=== PATIENT | male | born 1980 | race Two or more races ===

== ENCOUNTER 2024-07-04 09:20 | Day surgery (SDC) | payer MEDICAID ==
[2024-07-03 14:58] LABS: Urine Bacteria None Seen /hpf (None Seen)
[2024-07-03 15:40] LABS: Basophils # (auto) 0 10 ^3/uL (0-0.2); Basophils % (auto) 0.6 % (0.0-2.0); Eosinophils # (auto) 0.2 10 ^3/uL (0-0.8); Eosinophils % (auto) 2.6 % (0.0-7.0); Hematocrit 46.2 % (41.0-53.0); Hemoglobin 15.8 g/dL (13.5-17.5); Lymphocytes # (auto) 2.2 10 ^3/uL (0.4-5.4); Lymphocytes % (auto) 34.1 % (10.0-50.0); Mean Corpuscular Hemoglobin 33.4 pg (28.0-32.0); Mean Corpuscular Hgb Conc. 34.2 g/dL (32.0-36.0); Mean Corpuscular Volume 97.8 fL (80.0-100.0); Monocytes # (auto) 0.7 10 ^3/uL (0-1.3); Monocytes % (auto) 10.7 % (0.0-12.0); Neutrophils # (auto) 3.3 10 ^3/uL (1.6-8.6); Nucleated Red Blood Cells % 0.2 %; Platelet Count (auto) 235 10^3/uL (140-450); Red Blood Cells 4.73 10^6/uL (4.5-5.90); Red Cell Distribution Width 14.5 % (11.8-14.3); White Blood Cell 6.4 10^3/uL (4.4-10.8)
[2024-07-03 15:58] LABS: Alanine Aminotransferase 17 U/L (7-40); Albumin 4.5 g/dL (3.2-4.8); Alkaline Phosphatase 89 U/L (46-116); Anion Gap 3 (5-15); Aspartate Aminotransferase 15 U/L (13-40); BUN/Creatinine Ratio 14.9 (10.0-20.0); Bilirubin, Total 0.7 mg/dL (0.2-1.0); Blood Urea Nitrogen 21 mg/dL (9-23); Calcium 10.1 mg/dL (8.7-10.4); Carbon Dioxide 27 mmol/L (20-30); Chloride 109 mmol/L (98-107); Glucose 90 mg/dL (74-106); Potassium 4.2 mmol/L (3.5-5.1); Sodium 139 mmol/L (136-145); Urine Blood 1+ /uL (Negative); Urine Clarity Clear (Clear); Urine Color Yellow (Yellow); Urine Protein, UAD 1+ (Negative); Urine Specific Gravity 1.035 (1.001-1.035); Urine Urobilinogen 2 mg/dL (Negative); Urine WBC 3 /hpf (0 - 3); Urine pH 5.5 (5.0-9.0)
[2024-07-03 16:00] LABS: INR 0.98 (0.9-1.15); Prothrombin Time 10.4 sec (9.3-11.8)
[~2024-07-04] VITALS: Ht 177.8 cm; Wt 63.5 kg
[2024-07-04] MEDS ORDERED: MIDAZOLAM HCL 2MG/2ML 2ml VIAL (1mg/ml) ONE (11:20)
[2024-07-04] MEDS ORDERED: PROPOFOL 10 MG/ML 20 ML IV ONE (11:20)
[2024-07-04] MEDS ORDERED: ONDANSETRON HCL 4 MG/2 ML VIAL ONE (11:20)
[2024-07-04] MEDS ORDERED: MEPERIDINE HCL (50 MG/ML) 1 ML VIAL ONE (11:20)
[2024-07-04] MEDS ORDERED: SODIUM CHLORIDE LOCK 10 ML ONE (11:20)
[2024-07-04] MEDS ORDERED: fentaNYL CITRATE 100 MCG/2 ML VL ONE (11:20)
[2024-07-04] MEDS: LIDOCAINE VISCOUS 2% 15ML UD ONE (11:37)
[2024-07-04 12:03] VITALS: PULSE 94; RESP 20; TEMP 98; O2SAT 100
[2024-07-04 12:33] VITALS: BP 144/81; PULSE 89; RESP 20; O2SAT 98
== END 2024-07-04 12:50 | disposition home or self-care (01) ==
LOC: GI 09:20
PROVIDERS: ATTEND Internal Medicine Gastroenterology
DX: R63.4 Abnormal weight loss (principal); K29.50 Unspecified chronic gastritis without bleeding; K31.A11 Gastric intestinal metaplasia without dysplasia, involving the antrum; I12.9 Hypertensive chronic kidney disease with stage 1 through stage 4 chronic kidney disease, or unspecified chronic kidney disease; N18.30 Chronic kidney disease, stage 3 unspecified; Z21 Asymptomatic human immunodeficiency virus [HIV] infection status; Z80.8 Family history of malignant neoplasm of other organs or systems; Z68.20 Body mass index [BMI] 20.0-20.9, adult
CPT/HCPCS: 36415; 43239; 45378; 80053; 81001; 85025; 85610; 85730; 88305; 88312; 88342; J2175; J2250; J2405; J2704; J3010; J7030

== ENCOUNTER 2025-10-17 16:53 | Inpatient (IN) | payer MEDICAID ==
[~2025-10-17] VITALS: Ht 180.3 cm; Wt 67.2 kg
--- NOTE | 2025-10-17 17:10 | ED.PDOC ---
General HPI Comments 45 y/o M is BIBA from private residence for c/c of right sided flank pain. Patient was, recently, seen and diagnosed with a 8mm kidney stone at [facility] 2 weeks ago. He reports pain worsening, with no relief with prescribed [place] medication use, after being discharged from facility. Pain radiates to his back and is described as tight and pressure-like in quality and rated at a 10/10 in severity. Associated burning with urination with dark discoloration. No reported history of pertinent abdominal surgeries. Denial of any nausea, vomiting, diarrhea, bleeding with urination, or further acute symptoms. Vitals stable and within normal limits, with exception of a systolic pressure in the 160's range. On scene blood glucose of 112. Patient received 100ug Fentanyl prior to ED arrival, with pain improving to a 8/10 in severity. Vitals on scene: Blood pressure: 166/102 Heart rate: 80 Respiratory rate: 20 SpO2: 98%RA Past medical history: denies Past surgical history: denies Social history: denies santiago: r flank pain r abd , kid stone 2 wks ago HPI: Poor Historian. REVIEW OF SYSTEMS: CONSTITUTIONAL: Denies acute: fever, diaphoresis, chills, generalized weakness. HEAD: Denies acute: headache, photophobia Eyes: Denies acute: Double vision, vision loss, eye pain, eye discharge. EARS: Denies acute: tinnitus, hearing loss, ear discharge, ear pain, THROAT: Denies acute: sore throat, swelling, difficulty swallowing , pain with swallowing, change in voice. NECK: Denies acute: neck pain, neck swelling, stiff neck. HEART: Denies acute : chest pain, palpitations, LUNGS: Denies acute: SOB, wheezing, cough, hemoptysis ABDOMEN: Denies acute: Nausea, Vomiting, diarrhea, melena , hematemesis, hematochezia SKIN: Denies acute: rash, redness, lesions, itchiness. EXTREMITIES: Denies acute: calf pain, numbness, tingling, weakness, denies pain in extremity. Denies acute: Low back pain. Neuro: Denies acute: focal neurological deficit, motor or sensory focal neurological deficit, tremors, seizure like activity, confusion, dizziness, change in mental status, loss of bowel or bladder function, cauda equina like symptoms. : Denies acute: dysuria, hematuria, increase in urinary frequency. PSYCH: Denies acute: hallucination, suicidal ideation, homicidal ideation. PHYSICAL EXAM: General: -----mild---acute distress, awake and alert. Head: normocephalic, atraumatic. No raccoon's eyes, no urbina sign. Neck: supple, trachea is midline, no swelling. Throat: Normal phonation. Eyes:, no erythema, no purulent discharge, no proptosis, no icterus. Heart: regular rate, regular rhythm, no significant murmur appreciated. Lungs: no apparent respiratory distress, Able to speak in full sentences. No wheezing, no rhonchi, no crackles. No stridors Clear to auscultation bilaterally. Abdomen: Right-sided abdominal tender to palpation, non distended, soft, no guarding, no rebound, + bowel sounds. Neuro: Awake, Alert, oriented to name, self, situation, follows commands GCS=15. Speech is normal. Skin: no petechia, no purpura, no cyanosis, non-pale, not jaundice. Lower extremities: --no - Pitting edema no deformity, no focal swelling, no calf TTP. Makes eye contact. moves all four extremities. Face: no apparent facial droop. right CVA tenderness to percussion . ED COURSE: DISCLAIMER: This medical document was created using an electronic medical record system with voice recognition software and computerized dictation system. Although this document has been carefully reviewed, there might still be some phonetic and typographical errors. Occasional wrong-word or "sound-alike" substitutions may have occurred due to the inherent limitations of voice recognition software. These areas are purely typographical due to imperfections of the software programs and do not reflect any compromise in the patient's medical care. Please read the chart carefully and recognize, using context, where these substitutions have occurred. 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 Was a procedure done?: No Differential Diagnosis Kidney stone (Female): N/A Kidney stone (Male): Other (Flank Pain;DDX include Nephrolethiasis, obstructive uropathy, kidney cancer, renal infarct, intraabdominal neoplasm, lower lobe pneumonia, retroperitoneal hemorrhage, pancreatitis, aneurysm, dissection, musculoskeletal, rib contusion/trauma, hematoma, PYLONEPHRITIS, muscle strain, spinal disease. ) X-Ray, Labs, Meds, VS Vital Signs Date Time Temp Pulse Resp B/P (MAP) Pulse Ox O2 Delivery O2 Flow Rate FiO2 10/17/25 16:55 98.1 80 20 166/102 98 98.1 Lab Test 10/17/25 17:49 10/17/25 13:47 Range/Units White Blood Count 10.0 4.4-10.8 10^3/uL Red Blood Count 4.46 L 4.5-5.90 10^6/uL Hemoglobin 14.5 13.5-17.5 g/dL Hematocrit 42.7 41.0-53.0 % Mean Corpuscular Volume 95.8 80.0-100.0 fL Mean Corpuscular Hemoglobin 32.6 H 28.0-32.0 pg Mean Corpuscular Hemoglobin Concent 34.0 32.0-36.0 g/dL Red Cell Distribution Width 15.0 H 11.8-14.3 % Platelet Count 383 140-450 10^3/uL Mean Platelet Volume 6.3 L 6.9-10.8 fL Neutrophils (%) (Auto) 61.8 37.0-80.0 % Lymphocytes (%) (Auto) 23.1 10.0-50.0 % Monocytes (%) (Auto) 12.8 H 0.0-12.0 % Eosinophils (%) (Auto) 1.8 0.0-7.0 % Basophils (%) (Auto) 0.5 0.0-2.0 % Neutrophils # (Auto) 6.2 1.6-8.6 10 ^3/uL Lymphocytes # (Auto) 2.3 0.4-5.4 10 ^3/uL Monocytes # (Auto) 1.3 0-1.3 10 ^3/uL Eosinophils # (Auto) 0.2 0-0.8 10 ^3/uL Basophils # (Auto) 0.1 0-0.2 10 ^3/uL Nucleated Red Blood Cells 0.0 % Sodium Level 137 136-145 mmol/L Potassium Level 4.2 3.5-5.1 mmol/L Chloride Level 104 98-107 mmol/L Carbon Dioxide Level 26 20-31 mmol/L Anion Gap 7 5-15 Blood Urea Nitrogen 12 9-23 mg/dL Creatinine 2.44 H 0.700-1.30 mg/dL Glomerular Filtration Rate Calc 33 >90 mL/min BUN/Creatinine Ratio 4.9 L 10.0-20.0 Serum Glucose 93 74-106 mg/dL Lactic Acid Level 1.0 0.4-2.0 mmol/L Calcium Level 9.8 8.7-10.4 mg/dL Total Bilirubin 0.2 0.2-1.0 mg/dL Aspartate Amino Transferase (AST) 14 13-40 U/L Alanine Aminotransferase (ALT) 11 7-40 U/L Alkaline Phosphatase 92 46-116 U/L Total Protein 8.6 H 5.7-8.2 g/dL Albumin 4.5 3.2-4.8 g/dL Urine Creatinine 351.42 H 30.0-125.0 mg/dL Urine Protein/Creatinine Ratio 0.26 Urine Sodium 51 40-220 mmol/L Urine Total Protein 91.6 H 1-14 mg/dL [place] [id number] Ph: [phone] DIAGNOSTIC IMAGING Diagnostic Imaging Report : [id number] Signed PATIENT: ARIADNA SANTIAGO JR ACCT: [id number] UNIT: [id number] : 1980 LOC: ER ROOM / BED: / AGE / SEX: 45 / M ADM STATUS: REG ER SERVICE [id number] ORDERING PHYSICIAN: SUSANNE FIELDS DO PROCEDURE(s): ABPL - CT AB PEL WO CON-NO ORAL OR IV REASON: r flank pain, kid stone ORDER NUMBER(s): [id number], ACCESSION NUMBER(s): [id number] INDICATION: r flank pain, kid stone TECHNIQUE: CT axial images of the abdomen and pelvis are obtained without con trast. Coronal and sagittal reformats were obtained. Radiation Dose Information: CTDI volume is 5.42 mGy. Dose-length product is 295.68 mGy*cm COMPARISON: CT ABD/PEL on DOS: 10/03/25 FINDINGS: There is limited interpretation of the abdomen and pelvis without administration of intravenous contrast. Lung bases demonstrate no pleural effusion. Adrenal glands, spleen, pancreas, liver unremarkable in shape. No CT evidence for cholelithiasis. The Right kidney demonstrates moderate to severe right hydroureteronephrosis secondary to a mid right ureteral calculus measuring 10 mm. Right perinephric edema / stranding. 3 mm nonobstructing right renal calculus. Nonobstructing left renal calculi measuring up to 5 mm. Stomach partially distended. Small bowel loops moderately distended. Moderate to large volume stool throughout the colon. Normal appendix. Abdominal aortic atherosclerotic disease. Bladder partially distended. Prostate measures 4.7 cm transversely. No free pelvic fluid. No inguinal lymphadenopath y. [id number] bilateral sacroiliac degenerative joint disease. Mild thoracolumbar degenerative disc disease. IMPRESSION: Limited evaluation without contrast. Moderate to severe right hydroureteronephrosis secondary to a 10 mm right mid ureteral calculus. Moderate to large volume stool within the colon. Nonobstructing left renal calculus measuring 5 mm. Nonobstructing right renal calculus measuring 3 mm. Atherosclerotic disease. Other findings as described. ATED BY: ABDULAZIZ BIANCHI MD DICTATED DATE/TIME: 10/17/251848 SIGNED BY: ABDULAZIZ BAINCHI MD SIGNED DATE/TIME: 10/17/251848 CC: Time of 1ST Reevaluation: 16:50 Reevaluation 1ST: Unchanged Patient Education/Counseling: Diagnosis, Treatment Family Education/Counseling: No Family Present Comments MDM: patient presented with the above HPI.----flank pain--workup was initiated. patient was found with the above mentioned diagnosis. the following medications were ordered: please refer to order lists of meds and tests obtained by myself Dr. Fields. Patient ED course and VS have been stabilized. Patient has been reassessed in the ED and remained in a stable condition. Pertinent incidental findings were discussed with the patient and/or family. Patient/family voices understanding and is agreeable with plan. Patient has been observed in the ED adequate length of time to insure improvement/stability. Escalation of care considered: Consideration of escalation to observation or admission Patient was ADMITTED to the medicine team for further evaluation and treatment of their presentation. All the reports of any imaging studies that were ordered by myself were reviewed by myself. SEPSIS Sepsis Screen Physician Orders Artificial Breeding Technician (10/17/25 ) Ct Ab Pel Wo Con-No Oral Or Iv (10/17/25 17:16) Vital Signs Date Time Temp Pulse Resp B/P (MAP) Pulse Ox O2 Delivery O2 Flow Rate FiO2 10/17/25 16:55 98.1 80 20 166/102 98 98.1 Laboratory Tests Test 10/17/25 17:49 Lactic Acid Level 1.0 mmol/L (0.4-2.0) White Blood Count 10.0 10^3/uL (4.4-10.8) Departure 1 Departure Time of Disposition: 19:56 Impression: Primary Impression: Urinary tract obstruction by kidney stone Additional Impressions: Hydronephrosis Acute renal insufficiency Disposition: ADMITTED INPATIENT Admit to: Tele Condition: Guarded e-Prescriptions Tramadol HCl (Tramadol HCl) 50 Mg Tab 50 MG PO QID PRN, #30 TAB Prov: FAUSTINO BENAVIDEZ MD 10/22/25 Ciprofloxacin Hcl (Cipro) 500 Mg Tab 1 TAB PO BID, #14 TAB Prov: FAUSTINO BENAVIDEZ MD 10/22/25 Discharged With: Self Critical Care Note Critical Care Time?: No I personally scribed for SUSANNE FIELDS DO ([email or web address]) on 10/17/25 at 17:10. Electronically submitted by Vikas Hooper ([email or web address]). I personally scribed for SUSANNE FIELDS DO ([email or web address]) on 10/17/25 at 19:58. Electronically submitted by Radha Jiang ([facility]). I personally scribed for SUSANNE FIELDS DO ([email or web address]) on 10/17/25 at 21:37. Electronically submitted by Radha Jiang ([facility]). SUSANNE FIELDS DO Oct 17, 2025 17:10
[2025-10-17 18:05] LABS: Hematocrit 42.7 % (41.0-53.0); Hemoglobin 14.5 g/dL (13.5-17.5); Mean Corpuscular Hemoglobin 32.6 pg (28.0-32.0); Mean Corpuscular Volume 95.8 fL (80.0-100.0); Nucleated Red Blood Cells % 0.0 %
[2025-10-17 18:20] LABS: Alanine Aminotransferase 11 U/L (7-40); Albumin 4.5 g/dL (3.2-4.8); Alkaline Phosphatase 92 U/L (46-116); Anion Gap 7 (5-15); BUN/Creatinine Ratio 4.9 (10.0-20.0); Blood Urea Nitrogen 12 mg/dL (9-23); Calcium 9.8 mg/dL (8.7-10.4); Carbon Dioxide 26 mmol/L (20-31); Chloride 104 mmol/L (98-107); Glucose 93 mg/dL (74-106); Potassium 4.2 mmol/L (3.5-5.1); Sodium 137 mmol/L (136-145)
[2025-10-17 18:22] LABS: Bilirubin, Total 0.2 mg/dL (0.2-1.0); Total Protein 8.6 g/dL (5.7-8.2)
--- NOTE | 2025-10-17 18:52 | DVH ---
INDICATION: r flank pain, kid stone TECHNIQUE: CT axial images of the abdomen and pelvis are obtained without contrast. Coronal and sagittal reformats were obtained. Radiation Dose Information: CTDI volume is 5.42 mGy. Dose-length product is 295.68 mGy*cm COMPARISON: CT ABD/PEL on DOS: 10/03/25 FINDINGS: There is limited interpretation of the abdomen and pelvis without administration of intravenous contrast. Lung bases demonstrate no pleural effusion. Adrenal glands, spleen, pancreas, liver unremarkable in shape. No CT evidence for cholelithiasis. The Right kidney demonstrates moderate to severe right hydroureteronephrosis secondary to a mid right ureteral calculus measuring 10 mm. Right perinephric edema / stranding. 3 mm nonobstructing right renal calculus. Nonobstructing left renal calculi measuring up to 5 mm. Stomach partially distended. Small bowel loops moderately distended. Moderate to large volume stool throughout the colon. Normal appendix. Abdominal aortic atherosclerotic disease. Bladder partially distended. Prostate measures 4.7 cm transversely. No free pelvic fluid. No inguinal lymphadenopathy. [id number] bilateral sacroiliac degenerative joint disease. Mild thoracolumbar degenerative disc disease. IMPRESSION: Limited evaluation without contrast. Moderate to severe right hydroureteronephrosis secondary to a 10 mm right mid ureteral calculus. Moderate to large volume stool within the colon. Nonobstructing left renal calculus measuring 5 mm. Nonobstructing right renal calculus measuring 3 mm. Atherosclerotic disease. Other findings as described.
[2025-10-17] MEDS: fentaNYL CITRATE 100 MCG/2 ML VL IV ONE (23:39)
[2025-10-17] MEDS: TAMSULOSIN HYDROCHLORIDE 0.4 MG CAP PO ONE (23:40)
[2025-10-17] MEDS: SODIUM CHLORIDE 0.9% 1,000 ML IV ONE (23:53)
[2025-10-18] VITALS (8 sets, daily range): BP systolic 108–129; BP diastolic 66–79; PULSE 55–81; RESP 17–20; TEMP 98.1–99; O2SAT 95–99
[2025-10-18 00:16] LABS: Urine Protein, UAD 1+ (Negative)
[2025-10-18] MEDS ORDERED: MORPHINE SULFATE 4 MG/ML SYR/VIAL IV PRN (02:30)
[2025-10-18] MEDS: ACETAMINOPHEN 325 MG TAB PO SCH (02:37)
[2025-10-18] MEDS: SODIUM CHLORIDE 0.9% 1,000 ML IV ONE (02:50)
--- NOTE | 2025-10-18 04:10 | DVHHPRES ---
History of Present Illness Resident Creating Document: ELLEN MILTON RESIDENT History of Present Illness Will Alford JR is a 45-year-old male with past medical history of HIV presented with complaints of right flank pain since 2 weeks, But aggravated yesterday. Patient rates the pain 10 on 10 in intensity, sharp, radiating to the thigh. Patient reports that he went to [facility] few days back for the same complaints was diagnosed with ureteral stone, and was sent home with medicines. PCP set up appointment with urologist as outpatient but was scheduled for next year. He also complains of associated loss of appetite and constipation. He denies any fever, shortness of breath or chest pain. PMHx:HIV PSHx: None Family history: lung cancer in mother Social history: current smoker, 15 pack year smoking history. Lives alone Home medication: HIV meds Allergic history: none Review of Systems Review of Systems General: patient denies fever, fatigue, weaknes, sweating, any recent changes in appetite and weight HEENT: No headaches, visiual changes, hearing loss, tinnitus, nasal congestion and discharge, and sore throat. Cardiovascular: Denies chest pain, palpitations, dyspnea on exertion, orthopnea, or claudication. Respiratory: No cough, and wheezing. Gastrointestinal: Complains of right flank pain Genitourinary: No dysuria, hematuria, discharge, frequency, urgency, nocturia, incontinence, and urinary retention. Endocrine: No heat or cold intolerance, polydipsia, polyuria, and polyphagia. Neurological: No dizziness, extremity weakness and numbness, tremors, gait disturbance, seizures, and memory impairment. Psychiatric: Denies depression, anxiety,or insomnia. Musculoskeletal: Denies neck pain, stiffness and swelling, back pain, muscle weakness, joint pain, stiffness, swelling, or limited range of motion. Skin: No rashes, itching, skin lesion, changes in hair, nail, skin texture and breast. Hematologic/Lymphatic: Denies easy bruising, bleeding tendencies, or lymph node enlargement. Allergies: Coded Allergies: NO KNOWN ALLERGIES (Unverified , 07/04/24) Medications Current Medications Medications Dose Ordered Sig/Simón Route Start Time Stop Time Status Last Admin Dose Admin Sodium Chloride 1,000 ml @ 75 mls/hr [id number] IV 10/18/25 04:00 Acetaminophen 650 mg Q6HR PO 10/18/25 02:15 10/18/25 02:37 650 MG Acetaminophen/ Hydrocodone Bitart 1 tab Q6HPRN PRN PO 10/18/25 06:00 Morphine Sulfate 1 mg Q6HP PRN IV 10/18/25 02:30 Pantoprazole Sodium 40 mg DAILY IV 10/18/25 10:00 Exam Vital Signs Vital Signs Date Time Temp Pulse Resp B/P (MAP) Pulse Ox O2 Delivery O2 Flow Rate FiO2 10/18/25 03:01 81 18 96 Room Air* 0 21 10/18/25 02:37 98.2 10/18/25 02:00 143/98 (113) Exam General Appearance: Alert, Oriented X3, Cooperative, No acute distress HEENT: Atraumatic, PERRLA, EOMI, Mucous membrane moist/pink Respiratory: Clear to auscultation, Normal air movement Cardiovascular: Regular rate, Normal S1, Normal S2, No murmurs, no chest wall tenderness Abdominal: right flank tenderness Extremities: No clubbing, No cyanosis, No edema, Normal pulses, No tenderness/swelling Skin: No rashes, No breakdown, No significant lesion Neuro: Normal gait, Normal speech, Strength at 5/5 X4 ext, Normal tone, Sensation intact, Cranial nerves 3-12 NL, Reflexes 2+ Psych/Mental Status: Mental status NL, Mood NL Labs/Xrays Labs Test 10/17/25 23:47 10/17/25 17:49 Range/Units Urine Color Yellow Yellow Urine Clarity Clear Clear Urine pH 5.5 5.0-9.0 Urine Specific [place] 1.036 H 1.001-1.035 Urine Protein 1+ H Negative Urine Ketones 1+ H Negative Urine Blood Negative Negative /uL Urine Nitrite Negative Negative Urine Bilirubin Negative Negative Urine Urobilinogen Normal Negative mg/dL Urine Leukocyte Esterase Trace Negative /uL Urine RBC 6 0 - 3 /hpf Urine Microscopic WBC 2 0-3 /HPF Urine Squamous Epithelial Cells None seen <5 /hpf Urine Bacteria None seen None Seen /hpf Urine Glucose Normal Normal mg/dL White Blood Count 10.0 4.4-10.8 10^3/uL Red Blood Count 4.46 L 4.5-5.90 10^6/uL Hemoglobin 14.5 13.5-17.5 g/dL Hematocrit 42.7 41.0-53.0 % Mean Corpuscular Volume 95.8 80.0-100.0 fL Mean Corpuscular Hemoglobin 32.6 H 28.0-32.0 pg Mean Corpuscular Hemoglobin Concent 34.0 32.0-36.0 g/dL Red Cell Distribution Width 15.0 H 11.8-14.3 % Platelet Count 383 140-450 10^3/uL Mean Platelet Volume 6.3 L 6.9-10.8 fL Neutrophils (%) (Auto) 61.8 37.0-80.0 % Lymphocytes (%) (Auto) 23.1 10.0-50.0 % Monocytes (%) (Auto) 12.8 H 0.0-12.0 % Eosinophils (%) (Auto) 1.8 0.0-7.0 % Basophils (%) (Auto) 0.5 0.0-2.0 % Neutrophils # (Auto) 6.2 1.6-8.6 10 ^3/uL Lymphocytes # (Auto) 2.3 0.4-5.4 10 ^3/uL Monocytes # (Auto) 1.3 0-1.3 10 ^3/uL Eosinophils # (Auto) 0.2 0-0.8 10 ^3/uL Basophils # (Auto) 0.1 0-0.2 10 ^3/uL Nucleated Red Blood Cells 0.0 % Sodium Level 137 136-145 mmol/L Potassium Level 4.2 3.5-5.1 mmol/L Chloride Level 104 98-107 mmol/L Carbon Dioxide Level 26 20-31 mmol/L Anion Gap 7 5-15 Blood Urea Nitrogen 12 9-23 mg/dL Creatinine 2.44 H 0.700-1.30 mg/dL Glomerular Filtration Rate Calc 33 >90 mL/min BUN/Creatinine Ratio 4.9 L 10.0-20.0 Serum Glucose 93 74-106 mg/dL Lactic Acid Level 1.0 0.4-2.0 mmol/L Calcium Level 9.8 8.7-10.4 mg/dL Total Bilirubin 0.2 0.2-1.0 mg/dL Aspartate Amino Transferase (AST) 14 13-40 U/L Alanine Aminotransferase (ALT) 11 7-40 U/L Alkaline Phosphatase 92 46-116 U/L Total Protein 8.6 H 5.7-8.2 g/dL Albumin 4.5 3.2-4.8 g/dL SEPSIS Sepsis Screen Date sepsis recognized/suspect: Oct 18, 2025 Time Sepsis recognized/suspect: 2328 Recent Procedure: No On Antibiotic Therapy: No Respiratory Rate >20: No Heart Rate >90: No Temp<36 C (96.8 F) or >38.3 C: No SBP <90 or MAP <65 mmHG: No New Acute Mental Status Change: No Is the patient on CPAP, BIPAP,: No Physician Orders Admit (10/17/25:) Allergies (10/17/25:) Code Status (10/17/25:) Complete Blood Count (10/18/25 04:00) Condition: Fair (10/17/25:) Blood Alcohol (10/18/25 02:14) PTPTT (10/18/25 02:14) Magnesium (10/18/25 02:14) Kidney (10/18/25 02:14) Urine Sodium (10/18/25 02:14) Urine Protein/Creatinine Ratio (10/18/25 ) Urine Protein (10/18/25 02:14) Phosphorus (10/18/25 02:14) Parathyroid Hormone Intact (10/18/25 02:14) Vitamin D, 25-Hydroxy (10/18/25 02:14) Cd4/Cd8 Ratio Profile (10/18/25 02:14) Sodium Chloride 0.9% (10/18/25 04:00) Acetaminophen Tablet (Tylenol Tablet) (10/18/25 02:15) Hydrocodone-Acet 5/325mg Tab (Alva 5/32 (10/18/25 06:00) Pantoprazole (Protonix) (10/18/25 10:00) Regular Diet (10/18/25 Breakfast) Strain All Urine For Stones (10/18/25 02:14) Morphine Sulfate Injection (10/18/25 02:30) Comprehensive Metabolic Panel (10/18/25 04:00) * Urology Consult (10/18/25 03:52) Polyethylene Glycol 17g Powder (Miralax (10/18/25 04:15) Polyethylene Glycol 17g Powder (Miralax (10/19/25 10:00) Vital Signs Date Time Temp Pulse Resp B/P (MAP) Pulse Ox O2 Delivery O2 Flow Rate FiO2 10/18/25 03:01 81 18 96 Room Air* 0 21 10/18/25 02:37 98.2 10/18/25 02:30 81 18 96 Room Air* 0 21 10/18/25 02:00 81 15 143/98 (113) 96 10/18/25 00:00 70 10/17/25 23:39 148/97 10/17/25 23:29 Room Air* 0 21 10/17/25 23:29 97.9 76 14 148/97 (114) 94 97.9 Laboratory Tests Test 10/17/25 17:49 Lactic Acid Level 1.0 mmol/L (0.4-2.0) White Blood Count 10.0 10^3/uL (4.4-10.8) Medications Medications Dose Ordered Sig/Simón Route Start Time Stop Time Status Last Admin Dose Admin Acetaminophen 650 mg Q6HR PO 10/18/25 02:15 10/18/25 02:37 650 MG Fentanyl Citrate 100 mcg ONCE ONCE IV 10/17/25 20:00 10/17/25 20:18 DC 10/17/25 23:39 100 MCG Sodium Chloride 1,000 ml @ 1,000 mls/hr Q1H ONCE IV 10/17/25 20:00 10/17/25 20:59 DC 10/17/25 23:53 1,000 MLS/HR Sodium Chloride 1,000 ml @ 1,000 mls/hr Q1H ONCE IV 10/18/25 02:15 10/18/25 03:14 DC 10/18/25 02:50 1,000 MLS/HR Tamsulosin HCl 0.4 mg ONCE ONCE PO 10/17/25 20:00 10/17/25 20:18 DC 10/17/25 23:40 0.4 MG Assessment/Plan Assessment/Plan Assessment and plan Obstructive nephropathy due to ureteral calculi Ureteral stone leading to hydronephrosis Severe hydronephrosis JEFF on CKD possibly due to above Renal ultrasound Urine sodium, creatinine, protein creatinine ratio IV fluids Urology consult Tamsulosin Pain management Urine strain Current smoker counseled regarding cessation for 11 minutes Protein energy malnutrition consider director of therapy services counseling Slow transit constipation MiraLax HIV CD4:CD8 ratio Continue home medications follow up with PCP on discharge PUD prophylaxis: protonix 40mg DVT prophylaxis:Ambulatory. Barriers to discharge: Medical diagnosis and management in progress. Patient lives with self. PT and SW consult as needed. PCP: None Case discussed with Dr. Perdomo. Code Status: Full Code. Complex patient care discussion needed. Spend total 33 minutes for bedside assessment, case discussion and management. Plan discussed with: Patient My Orders Orders - ELLEN MILTON RESIDENT Procedure Category Date Status Time Admit ADMIT 10/17/25 Transmitted 23:27 Allergies INA 10/17/25 In Process 23:27 Code Status CODE 10/17/25 Transmitted 23:27 Complete Blood Count LAB 10/18/25 Logged 04:00 Condition: Fair INA 10/17/25 In Process 23:27 Blood Alcohol LAB 10/18/25 Logged 02:14 PTPTT LAB 10/18/25 Logged 02:14 Magnesium LAB 10/18/25 Logged 02:14 Kidney US 10/18/25 Logged 02:14 Urine Sodium LAB 10/18/25 Logged 02:14 Urine LAB 10/18/25 Logged Protein/Creatinine Urine Protein LAB 10/18/25 Logged 02:14 Phosphorus LAB 10/18/25 Logged 02:14 Parathyroid Hormone LAB 10/18/25 Logged Intact 02:14 Vitamin D, 25-Hydroxy LAB 10/18/25 Logged 02:14 Cd4/Cd8 Ratio Profile LAB 10/18/25 Logged 02:14 Sodium Chloride 0.9% PHA 10/18/25 In Process 04:00 Acetaminophen Tablet PHA 10/18/25 In Process (Tylenol Tablet) 02:15 Hydrocodone-Acet PHA 10/18/25 In Process 5/325mg Tab (Alva 06:00 Pantoprazole PHA 10/18/25 In Process (Protonix) 10:00 Regular Diet DIET 10/18/25 Transmitted Breakfast Strain All Urine For INA 10/18/25 In Process Stones 02:14 Morphine Sulfate PHA 10/18/25 In Process Injection 02:30 Comprehensive LAB 10/18/25 Logged Metabolic Panel 04:00 * Urology Consult CONS 10/18/25 Transmitted 03:52 Polyethylene Glycol PHA 10/18/25 In Process 17g Powder (Miralax 04:15 Polyethylene Glycol PHA 10/19/25 In Process 17g Powder (Miralax 10:00 Visit Coding STANDARD RES Billing Provider: SHONNA PERDOMO MD Date of Service if different f: Oct 18, 2025 Common Visit Codes: 56693-[id number] INP/OBS CARE (HIGH) Secondary Visit Codes: 43841-[id number] CARE PLAN 30 MINUTES ELLEN MILTON RESIDENT Oct 18, 2025 04:10
[2025-10-18] MEDS: POLYETHYLENE GLYCOL 17 GM PWDR PO ONE (04:50)
[2025-10-18] MEDS: SODIUM CHLORIDE 0.9% 1,000 ML IV SCH (04:52)
[2025-10-18 07:17] LABS: Hematocrit 38.6 % (41.0-53.0); Hemoglobin 12.9 g/dL (13.5-17.5); Mean Corpuscular Hemoglobin 31.8 pg (28.0-32.0); Mean Corpuscular Volume 94.8 fL (80.0-100.0); Nucleated Red Blood Cells % 0.1 %
[2025-10-18 07:32] LABS: INR 1.0 (0.9-1.15); Partial Thromboplastin Time 32.7 SEC (24.5-34.5); Prothrombin Time 10.6 sec (9.3-11.8)
[2025-10-18 08:51] LABS: Alkaline Phosphatase 76 U/L (46-116); BUN/Creatinine Ratio 5.4 (10.0-20.0); Blood Urea Nitrogen 12 mg/dL (9-23); Glucose 83 mg/dL (74-106); Magnesium 2.3 mg/dL (1.6-2.6); Potassium 4.4 mmol/L (3.5-5.1); Sodium 139 mmol/L (136-145); Total Protein 6.9 g/dL (5.7-8.2)
[2025-10-18 08:52] LABS: Albumin 3.7 g/dL (3.2-4.8)
[2025-10-18 08:54] LABS: Carbon Dioxide 24 mmol/L (20-31)
[2025-10-18 08:56] LABS: Alanine Aminotransferase < 9 U/L (7-40); Anion Gap 7 (5-15); Bilirubin, Total 0.3 mg/dL (0.2-1.0); Calcium 8.7 mg/dL (8.7-10.4); Chloride 108 mmol/L (98-107)
[2025-10-18] MEDS: HYDROcodone-ACET 5/325MG TAB PO PRN (09:22)
[2025-10-18] MEDS: PANTOPRAZOLE 40 MG/10 ML VIAL INJ IV SCH (09:23)
--- NOTE | 2025-10-18 10:36 | DVH ---
US KIDNEY COMPARISON: CT 10/17/2025 INDICATION: Ureteral stone TECHNIQUE: Ultrasound exam of the retroperitoneum was performed. FINDINGS: The right kidney is 10.7 cm. The left kidney is 9.2 cm. Persistent moderate to severe right collecting system dilatation. No significant left-sided hydronephrosis. The prevoid volume of the bladder measures 215 cc. Right ureteral jet visualized. Left ureteral jet not visualized IMPRESSION: Persistent moderate to severe right collecting system dilatation.
--- NOTE | 2025-10-18 13:22 | DVHPN2 ---
Changes from previous H/P or p: No Changes Objective Vitals Vital Signs Date Time Temp Pulse Resp B/P (MAP) Pulse Ox O2 Delivery O2 Flow Rate FiO2 10/18/25 09:00 98.3 59 20 121/76 (91) 97 98.3 10/18/25 08:10 Room Air* 0 21 Intake/Output Intake and Output 10/18/25 07:00 Intake Total 1000 ml Balance 1000 ml Intake Oral 0 ml IV Total 1000 ml Medications Current Medications Medications Dose Ordered Sig/Simón Route Start Time Stop Time Status Last Admin Dose Admin Sodium Chloride 1,000 ml @ 75 mls/hr [id number] IV 10/18/25 04:00 10/18/25 04:52 75 MLS/HR Acetaminophen 650 mg Q6HR PO 10/18/25 02:15 10/18/25 06:18 650 MG Acetaminophen/ Hydrocodone Bitart 1 tab Q6HPRN PRN PO 10/18/25 06:00 10/18/25 09:22 1 TAB Morphine Sulfate 1 mg Q6HP PRN IV 10/18/25 02:30 Pantoprazole Sodium 40 mg DAILY IV 10/18/25 10:00 10/18/25 09:23 40 MG Polyethylene Glycol 17 gm DAILY PO 10/19/25 10:00 Laboratory Results Laboratory Tests 10/18/25 06:10 Chemistry Test 10/17/25 17:49 10/18/25 06:10 Albumin 4.5 g/dL (3.2-4.8) 3.7 g/dL (3.2-4.8) Calcium Level 9.8 mg/dL (8.7-10.4) 8.7 mg/dL (8.7-10.4) Total Protein 8.6 g/dL (5.7-8.2) H 6.9 g/dL (5.7-8.2) Magnesium Level 2.3 mg/dL (1.6-2.6) Phosphorus Level 2.9 mg/dL (2.4-5.1) Coagulation Test 10/18/25 06:10 Prothrombin Time 10.6 sec (9.3-11.8) Prothrombin Time INR 1.00 (0.9-1.15) Activated Partial Thromboplast Time 32.7 SEC (24.5-34.5) LFT Test 10/17/25 17:49 10/18/25 06:10 Alanine Aminotransferase (ALT) 11 U/L (7-40) < 9 U/L (7-40) Alkaline Phosphatase 92 U/L (46-116) 76 U/L (46-116) Aspartate Amino Transferase (AST) 14 U/L (13-40) 13 U/L (13-40) Total Bilirubin 0.2 mg/dL (0.2-1.0) 0.3 mg/dL (0.2-1.0) Urinalysis Test 10/17/25 23:47 Urine Color Yellow (Yellow) Urine Clarity Clear (Clear) Urine pH 5.5 (5.0-9.0) Urine Specific [place] 1.036 (1.001-1.035) Urine Protein 1+ (Negative) H Urine Ketones 1+ (Negative) H Urine Blood Negative /uL (Negative) Urine Nitrite Negative (Negative) Urine Bilirubin Negative (Negative) Urine Urobilinogen Normal mg/dL (Negative) Urine Leukocyte Esterase Trace /uL (Negative) Urine RBC 6 /hpf (0 - 3) Urine Microscopic WBC 2 /HPF (0-3) Urine Squamous Epithelial Cells None seen /hpf (<5) Urine Bacteria None seen /hpf (None Seen) Urine Glucose Normal mg/dL (Normal) Labs and/or images reviewed: Labs reviewed by me, Image(s) reviewed by me Assessment/Plan Assessment/Plan Acute right flank pain 10 mm right mid ureteral calculus with severe hydronephrosis Flomax tramadol urology consult for Obstructive uropathy JEFF on CKD Chronic current smoker: Counseling History of hep C on treatment in [facility] clinic Time spent 45 minutes Plan discussed with: Patient Date of Service: Oct 18, 2025 Billing Provider: FAUSTINO BENAVIDEZ MD Common Visit Codes: [id number] INP/OBS CARE(HIGH) FAUSTINO BENAVIDEZ MD Oct 18, 2025 13:22
[2025-10-18] MEDS: TAMSULOSIN HYDROCHLORIDE 0.4 MG CAP PO ONE (13:30)
--- NOTE | 2025-10-18 13:44 | DVHINCON2 ---
Date of service: Oct 18, [address] Tyson Reason for Consultation obstructive uropathy History of Present Illness History Source: Patient, RN Notes, MD Notes Exam Limitations: No limitations HPI 45-year-old male admitted for acute onset severe right flank pain. CT abdomen/pelvis without contrast demonstrates a 10 mm right mid-ureteral calculus with moderate to severe right hydroureteronephrosis and perinephric stranding. Additional nonobstructing renal calculi are present bilaterally. Renal ultrasound confirms persistent moderate to severe right collecting system dilation. Right ureteral jet visualized; left ureteral jet not visualized. Hospital course notable for acute kidney injury, with creatinine rising from baseline 1.4 to 2.44 mg/dL, now improving to 2.21 mg/dL with IV hydration. Patient remains afebrile, hemodynamically stable, without leukocytosis. Urinalysis shows no evidence of active infection. Pain initially severe, now intermittently controlled with IV and PO analgesics. Patient voiding spontaneously. Past Medical History Patient Family History: Patient reports no known family medical history. H&P Exam Vital Signs Vital Signs Date Time Temp Pulse Resp B/P (MAP) Pulse Ox O2 Delivery O2 Flow Rate FiO2 10/18/25 09:00 98.3 59 20 121/76 (91) 97 98.3 10/18/25 08:10 Room Air* 0 21 Labs/Xrays [place] [address] Ph: [phone] DIAGNOSTIC IMAGING Diagnostic Imaging Report : [id number] Signed PATIENT: ARIADNA SANTIAGO JR ACCT: [id number] UNIT: [id number] : 1980 LOC: ER ROOM / BED: / AGE / SEX: 45 / M ADM STATUS: REG ER SERVICE 1716 ORDERING PHYSICIAN: SUSANNE FIELDS DO PROCEDURE(s): ABPL - CT AB PEL WO CON-NO ORAL OR IV REASON: r flank pain, kid stone ORDER NUMBER(s): [id number], ACCESSION NUMBER(s): [id number] INDICATION: r flank pain, kid stone TECHNIQUE: CT axial images of the abdomen and pelvis are obtained without contrast. Coronal and sagittal reformats were obtained. Radiation Dose Information: CTDI volume is 5.42 mGy. Dose-length product is 295.68 mGy*cm COMPARISON: CT ABD/PEL on DOS: 10/03/25 FINDINGS: There is limited interpretation of the abdomen and pelvis without administration of intravenous contrast. Lung bases demonstrate no pleural effusion. Adrenal glands, spleen, pancreas, liver unremarkable in shape. No CT evidence for cholelithiasis. The Right kidney demonstrates moderate to severe right hydroureteronephrosis s econdary to a mid right ureteral calculus measuring 10 mm. Right perinephric edema / stranding. 3 mm nonobstructing right renal calculus. Nonobstructing left renal calculi measuring up to 5 mm. Stomach partially distended. Small bowel loops moderately distended. Moderate to large volume stool throughout the colon. Normal appendix. Abdominal aortic atherosclerotic disease. Bladder partially distended. Prostate measures 4.7 cm transversely. No free pelvic fluid. No inguinal lymphadenopathy. [id number] bilateral sacroiliac degenerative joint disease. Mild thoracolumbar degenerative disc disease. IMPRESSION: Limited evaluation without contrast. Moderate to severe right hydroureteronephrosis secondary to a 10 mm right mid ureteral calculus. Moderate to large volume stool within the colon. Nonobstructing left renal calculus measuring 5 mm. Nonobstructing right renal calculus measuring 3 mm. Atherosclerotic disease. Other findings as described. ATED BY: ABDULAZIZ BIANCHI MD DICTATED DATE/TIME: 10/17/251848 SIGNED BY: ABDULAZIZ BIANCHI MD SIGNED DATE/TIME: 10/17/251848 CC: [place] [address] Ph: [phone] DIAGNOSTIC IMAGING Diagnostic Imaging Report : [id number] Signed PATIENT: ARIADNA SANTIAGO JR ACCT: [id number] UNIT: [id number] : 1980 LOC: EAST ROOM / BED: [facility] / B AGE / SEX: 45 / M ADM STATUS: ADM IN SERVICE 3 ORDERING PHYSICIAN: ELLEN MILTON RESIDENT PROCEDURE(s): KIDUS - KIDNEY REASON: Ureteral stone ORDER NUMBER(s): [id number], ACCESSION NUMBER(s): [id number] US KIDNEY COMPARISON: CT 10/17/2025 INDICATION: Ureteral stone TECHNIQUE: Ultrasound exam of the retroperitoneum was performed. FINDINGS: The right kidney is 10.7 cm. The left kidney is 9.2 cm. Persistent moderate to severe right collecting system dilatation. No significant left-sided hydronephrosis. The prevoid volume of the bladder measures 215 cc. Right ureteral jet visualized. Left ureteral jet not visualized IMPRESSION: Persistent moderate to severe right collecting system dilatation. ATED BY: RADHA HILARIO MD DICTATED DATE/TIME: 10/18/25 1033 SIGNED BY: RADHA HILARIO MD SIGNED DATE/TIME: 10/18/25 1033 CC: Labs Test 10/18/25 06:10 10/17/25 23:47 10/17/25 17:49 Range/Units Mean Platelet Volume 7.0 6.9-10.8 fL Neutrophils # (Auto) 4.8 1.6-8.6 10 ^3/uL Lymphocytes # (Auto) 1.9 0.4-5.4 10 ^3/uL Monocytes # (Auto) 1.0 0-1.3 10 ^3/uL Eosinophils # (Auto) 0.2 0-0.8 10 ^3/uL Basophils # (Auto) 0 0-0.2 10 ^3/uL Prothrombin Time 10.6 9.3-11.8 sec Prothrombin Time INR 1.00 0.9-1.15 Activated Partial Thromboplast Time 32.7 24.5-34.5 SEC Sodium Level 139 136-145 mmol/L Potassium Level 4.4 3.5-5.1 mmol/L Chloride Level 108 H 98-107 mmol/L Carbon Dioxide Level 24 20-31 mmol/L Anion Gap 7 5-15 Blood Urea Nitrogen 12 9-23 mg/dL Creatinine 2.21 H 0.700-1.30 mg/dL Glomerular Filtration Rate Calc 37 >90 mL/min BUN/Creatinine Ratio 5.4 L 10.0-20.0 Serum Glucose 83 74-106 mg/dL Calcium Level 8.7 8.7-10.4 mg/dL Phosphorus Level 2.9 2.4-5.1 mg/dL Magnesium Level 2.3 1.6-2.6 mg/dL Total Bilirubin 0.3 0.2-1.0 mg/dL Aspartate Amino Transferase (AST) 13 13-40 U/L Alanine Aminotransferase (ALT) < 9 7-40 U/L Alkaline Phosphatase 76 46-116 U/L Total Protein 6.9 5.7-8.2 g/dL Albumin 3.7 3.2-4.8 g/dL Vitamin D 25-Hydroxy 18.2 L 30.0-100 ng/mL Parathyroid Hormone (Intact) 116.7 H 18.4-80.1 pg/mL Plasma/Serum Blood Alcohol < 3.0 <10 mg/dL Urine Color Yellow Yellow Urine Clarity Clear Clear Urine pH 5.5 5.0-9.0 Urine Specific [place] 1.036 H 1.001-1.035 Urine Protein 1+ H Negative Urine Ketones 1+ H Negative Urine Blood Negative Negative /uL Urine Nitrite Negative Negative Urine Bilirubin Negative Negative Urine Urobilinogen Normal Negative mg/dL Urine Leukocyte Esterase Trace Negative /uL Urine RBC 6 0 - 3 /hpf Urine Microscopic WBC 2 0-3 /HPF Urine Squamous Epithelial Cells None seen <5 /hpf Urine Bacteria None seen None Seen /hpf Urine Glucose Normal Normal mg/dL Lactic Acid Level 1.0 0.4-2.0 mmol/L Assessment/Plan Plan 1. Obstructing right mid-ureteral calculus (10 mm) 2. Moderate to severe right hydroureteronephrosis 3. Acute kidney injury, post-renal, creatinine elevated from baseline 1.4 mg/dL, currently improving 4. Renal colic with intermittent severe pain 5. No evidence of urosepsis or active urinary infection No emergent urologic intervention indicated at this time, as patient is afebrile, hemodynamically stable, without leukocytosis or infection, and renal function is improving from peak JEFF. Continue medical management: Tamsulosin 0.4 mg PO daily IV hydration Pain control per primary team Antiemetics PRN Trend renal function daily Low threshold for intervention: If creatinine worsens or fails to continue improving, If pain becomes refractory to medical management, If fever, leukocytosis, or infection develops Recommend urgent right PCN placement via IR service vs stent. Patient will require definitive stone management as outpatient. VELMA HOWARD NP Oct 18, 2025 13:44
[2025-10-18 14:18] LABS: Protein, Urine 91.6 mg/dL (1-14)
[2025-10-18] MEDS: TAMSULOSIN HYDROCHLORIDE 0.4 MG CAP PO SCH (17:23)
[2025-10-19] VITALS (9 sets, daily range): BP systolic 129–155; BP diastolic 63–97; PULSE 61–88; RESP 17–20; TEMP 98.4–99.1; O2SAT 97–98
[2025-10-19 06:06] LABS: Hematocrit 38.8 % (37.5-51.0); Hemoglobin 12.8 g/dL (13.0-17.7); MCH 31.8 pg (26.6-33.0); MCHC 33.0 g/dL (31.5-35.7); MCV 97 fL (79-97); RBC 4.02 x10E6/uL (4.14-5.80); RDW 13.9 % (11.6-15.4); WBC 9.0 x10E3/uL (3.4-10.8)
[2025-10-19] MEDS: POLYETHYLENE GLYCOL 17 GM PWDR PO SCH (09:26)
--- NOTE | 2025-10-19 11:03 | DVHPN2 ---
Changes from previous H/P or p: No Changes Objective Vitals Vital Signs Date Time Temp Pulse Resp B/P (MAP) Pulse Ox O2 Delivery O2 Flow Rate FiO2 10/19/25 09:00 99.1 61 20 155/97 (116) 97 99.1 10/18/25 20:00 Room Air* 0 21 Intake/Output Intake and Output 10/19/25 07:00 Intake Total 1842 ml Output Total 900 ml Balance 942 ml Intake Oral 1842 ml Output Urine Total 900 ml Medications Current Medications Medications Dose Ordered Sig/Simón Route Start Time Stop Time Status Last Admin Dose Admin Sodium Chloride 1,000 ml @ 75 mls/hr [id number] IV 10/18/25 04:00 10/19/25 00:56 75 MLS/HR Acetaminophen 650 mg Q6HR PO 10/18/25 02:15 10/18/25 17:23 650 MG Acetaminophen/ Hydrocodone Bitart 1 tab Q6HPRN PRN PO 10/18/25 06:00 10/19/25 05:51 1 TAB Morphine Sulfate 1 mg Q6HP PRN IV 10/18/25 02:30 Pantoprazole Sodium 40 mg DAILY IV 10/18/25 10:00 10/19/25 09:25 40 MG Polyethylene Glycol 17 gm DAILY PO 10/19/25 10:00 10/19/25 09:26 17 GM Tamsulosin HCl 0.4 mg QPM PO 10/18/25 18:00 10/18/25 17:23 0.4 MG Laboratory Results Laboratory Tests 10/18/25 06:10 Urinalysis Test 10/17/25 13:47 10/17/25 23:47 Urine Creatinine 351.42 mg/dL (30.0-125.0) H Urine Protein/Creatinine Ratio 0.26 Urine Sodium 51 mmol/L (40-220) Urine Total Protein 91.6 mg/dL (1-14) H Urine Color Yellow (Yellow) Urine Clarity Clear (Clear) Urine pH 5.5 (5.0-9.0) Urine Specific [place] 1.036 (1.001-1.035) Urine Protein 1+ (Negative) H Urine Ketones 1+ (Negative) H Urine Blood Negative /uL (Negative) Urine Nitrite Negative (Negative) Urine Bilirubin Negative (Negative) Urine Urobilinogen Normal mg/dL (Negative) Urine Leukocyte Esterase Trace /uL (Negative) Urine RBC 6 /hpf (0 - 3) Urine Microscopic WBC 2 /HPF (0-3) Urine Squamous Epithelial Cells None seen /hpf (<5) Urine Bacteria None seen /hpf (None Seen) Urine Glucose Normal mg/dL (Normal) Labs and/or images reviewed: Labs reviewed by me, Image(s) reviewed by me Assessment/Plan Assessment/Plan Acute right flank pain 10 mm right mid ureteral calculus with severe hydronephrosis Flomax tramadol urology consult for educated, advised no immediate urological intervention required, Renal ultrasound 10/18/2025 shows persisting moderate to severe right collecting system dilatation Obstructive uropathy JEFF on CKD Chronic current smoker: Counseling History of hep C on treatment in [facility] clinic Time spent 45 minutes Plan discussed with: Patient My Orders Orders - FAUSTINO BENAVIDEZ MD Procedure Category Date Status Time Tamsulosin PHA 10/18/25 In Process Hydrochloride (Flomax) 18:00 * Urology Consult CONS 10/18/25 Transmitted 13:22 Date of Service: Oct 19, 2025 Billing Provider: FAUSTINO BENAVIDEZ MD Common Visit Codes: [id number] INP/OBS CARE(HIGH) FAUSTINO BENAVIDEZ MD Oct 19, 2025 11:03
[2025-10-19 11:58] LABS: Hematocrit 38.2 % (41.0-53.0); Hemoglobin 13.0 g/dL (13.5-17.5); Mean Corpuscular Hemoglobin 31.9 pg (28.0-32.0); Mean Corpuscular Volume 93.8 fL (80.0-100.0); Nucleated Red Blood Cells % 0.1 %
[2025-10-19 12:26] LABS: Albumin 3.7 g/dL (3.2-4.8); Alkaline Phosphatase 79 U/L (46-116); Anion Gap 6 (5-15); BUN/Creatinine Ratio 5.8 (10.0-20.0); Blood Urea Nitrogen 13 mg/dL (9-23); Calcium 9.0 mg/dL (8.7-10.4); Carbon Dioxide 26 mmol/L (20-31); Glucose 82 mg/dL (74-106); Potassium 4.2 mmol/L (3.5-5.1); Sodium 140 mmol/L (136-145); Total Protein 7.0 g/dL (5.7-8.2)
[2025-10-19 12:27] LABS: Alanine Aminotransferase < 9 U/L (7-40); Bilirubin, Total 0.3 mg/dL (0.2-1.0); Chloride 108 mmol/L (98-107)
--- NOTE | 2025-10-19 17:09 | DVHPN2 ---
Progress Note - Dictate Date Seen: Oct 19, 2025 Medical Necessity Reason Pt with a Central, PICC or Fol: No Subjective no appetite, pain med regimen isn't working vital signs Vital Sign Date Time Temp Pulse Resp B/P (MAP) Pulse Ox O2 Delivery O2 Flow Rate FiO2 10/19/25 16:58 98.7 88 20 140/87 (104) 97 98.7 10/19/25 08:00 Room Air* 0 21 Total Intake and Output 10/18/25 10/18/25 10/19/25 15:00 23:00 07:00 Intake Total 436 ml 906 ml 500 ml Output Total 300 ml 600 ml Balance 436 ml 606 ml -100 ml medications Current Medications Medications Dose Ordered Sig/Simón Route Start Time Stop Time Status Last Admin Dose Admin Sodium Chloride 1,000 ml @ 75 mls/hr [id number] IV 10/18/25 04:00 10/19/25 00:56 75 MLS/HR Acetaminophen 650 mg Q6HR PO 10/18/25 02:15 10/18/25 17:23 650 MG Acetaminophen/ Hydrocodone Bitart 1 tab Q6HPRN PRN PO 10/18/25 06:00 10/19/25 05:51 1 TAB Morphine Sulfate 1 mg Q6HP PRN IV 10/18/25 02:30 Pantoprazole Sodium 40 mg DAILY IV 10/18/25 10:00 10/19/25 09:25 40 MG Polyethylene Glycol 17 gm DAILY PO 10/19/25 10:00 10/19/25 09:26 17 GM Tamsulosin HCl 0.4 mg QPM PO 10/18/25 18:00 10/18/25 17:23 0.4 MG objective resting but appears uncomfortable laboratory and microbiology Laboratory Tests 10/19/25 11:36 Test 10/19/25 11:36 Range/Units Serum Glucose 82 74-106 mg/dL Assessment/Plan NPO after midnight PCN via IR service pain meds adjusted Problems(with codes): (1) Hydronephrosis (2) Acute renal insufficiency (3) Urinary tract obstruction by kidney stone Plan discussed with: Patient, Other VELMA HOWARD [employer] Oct 19, 2025 17:09
[2025-10-19] MEDS ORDERED: HYDROcodone-ACET 10/325MG TAB PO PRN (17:15)
[2025-10-19] MEDS ORDERED: ONDANSETRON HCL 4 MG/2 ML VIAL IV PRN (17:15)
[2025-10-19] MEDS: HYDROmorphone HCL 2 MG/ML VL/or syr IV PRN (22:19)
[2025-10-20] VITALS (8 sets, daily range): BP systolic 123–157; BP diastolic 84–99; PULSE 60–78; RESP 16–20; TEMP 98.3–98.7; O2SAT 95–98
[2025-10-20 08:07] LABS: CD4/CD8 Ratio 1.51 (0.92-3.72)
--- NOTE | 2025-10-20 10:52 | DVHPN2 ---
Reviewed: Care Plan, H&P, Labs, Medications, Previous Orders, Radiology Changes from previous H/P or p: No Changes Objective Vitals Vital Signs Date Time Temp Pulse Resp B/P (MAP) Pulse Ox O2 Delivery O2 Flow Rate FiO2 10/20/25 09:23 68 20 155/98 10/20/25 08:48 98.6 97 98.6 10/19/25 20:00 Room Air* 0 21 Intake/Output Intake and Output 10/20/25 07:00 Intake Total 1393 ml Output Total 1900 ml Balance -507 ml Intake Oral 718 ml IV Total 675 ml Output Urine Total 1900 ml Medications Current Medications Medications Dose Ordered Sig/Simón Route Start Time Stop Time Status Last Admin Dose Admin Sodium Chloride 1,000 ml @ 75 mls/hr [id number] IV 10/18/25 04:00 10/20/25 09:24 75 MLS/HR Acetaminophen 650 mg Q6HR PO 10/18/25 02:15 10/20/25 00:44 650 MG Pantoprazole Sodium 40 mg DAILY IV 10/18/25 10:00 10/20/25 09:22 40 MG Polyethylene Glycol 17 gm DAILY PO 10/19/25 10:00 10/19/25 09:26 17 GM Hydromorphone HCl 0.5 mg Q4HPRN PRN IV 10/19/25 17:15 10/20/25 09:23 0.5 MG Acetaminophen/ Hydrocodone Bitart 1 tab Q6HP PRN PO 10/19/25 17:15 Ondansetron HCl 4 mg Q6HPRN PRN IV 10/19/25 17:15 Laboratory Results Laboratory Tests 10/19/25 11:36 Chemistry Test 10/19/25 11:36 Albumin 3.7 g/dL (3.2-4.8) Calcium Level 9.0 mg/dL (8.7-10.4) Total Protein 7.0 g/dL (5.7-8.2) LFT Test 10/19/25 11:36 Alanine Aminotransferase (ALT) < 9 U/L (7-40) Alkaline Phosphatase 79 U/L (46-116) Aspartate Amino Transferase (AST) 15 U/L (13-40) Total Bilirubin 0.3 mg/dL (0.2-1.0) Urinalysis Test 10/17/25 13:47 10/17/25 23:47 Urine Creatinine 351.42 mg/dL (30.0-125.0) H Urine Protein/Creatinine Ratio 0.26 Urine Sodium 51 mmol/L (40-220) Urine Total Protein 91.6 mg/dL (1-14) H Urine Color Yellow (Yellow) Urine Clarity Clear (Clear) Urine pH 5.5 (5.0-9.0) Urine Specific [place] 1.036 (1.001-1.035) Urine Protein 1+ (Negative) H Urine Ketones 1+ (Negative) H Urine Blood Negative /uL (Negative) Urine Nitrite Negative (Negative) Urine Bilirubin Negative (Negative) Urine Urobilinogen Normal mg/dL (Negative) Urine Leukocyte Esterase Trace /uL (Negative) Urine RBC 6 /hpf (0 - 3) Urine Microscopic WBC 2 /HPF (0-3) Urine Squamous Epithelial Cells None seen /hpf (<5) Urine Bacteria None seen /hpf (None Seen) Urine Glucose Normal mg/dL (Normal) Labs and/or images reviewed: Labs reviewed by me, Image(s) reviewed by me Assessment/Plan Assessment/Plan Acute right flank pain 10 mm right mid ureteral calculus with severe hydronephrosis Flomax tramadol urology consult for , advised no immediate urological intervention required, Renal ultrasound 10/18/2025 shows persisting moderate to severe right collecting system dilatation Obstructive uropathy JEFF on CKD Patient getting right nephrostomy tube placement today Chronic current smoker: Counseling History of hep C on treatment in [facility] clinic Time spent 45 minutes Plan discussed with: Patient Date of Service: Oct 20, 2025 Billing Provider: FAUSTINO BENAVIDEZ MD Common Visit Codes: [id number] INP/OBS CARE(HIGH) FAUSTINO BENAVIDEZ MD Oct 20, 2025 10:52
[2025-10-21] VITALS (11 sets, daily range): BP systolic 128–161; BP diastolic 90–104; PULSE 63–78; RESP 14–20; TEMP 98.4–98.9; O2SAT 96–98
[2025-10-21] MEDS: MIDAZOLAM HCL 2MG/2ML 2ml VIAL (1mg/ml) ONE (08:09)
[2025-10-21] MEDS: LIDOCAINE 2%HCL (LOCAL ANESTH.) INJ 20ML MDV ONE ×2 (08:09→11:55)
[2025-10-21] MEDS: fentaNYL CITRATE 100 MCG/2 ML VL ONE (08:09)
--- NOTE | 2025-10-21 10:07 | DVH ---
XY PERCUTANEOUS NEPHROSTOMY, US US GUIDANCE FOR NEEDLE PLACEME, HISTORY: RT flank pain due to obstructive 9 mm mid ureteral kidney stone with hydronephrosis. PROCEDURE: Informed consent was obtained. The patient was placed on the fluoroscopic table in a prone position and IV sedation administered. The right flank was prepped with chlorhexidine which was allowed to dry and draped in the usual sterile fashion. Time out was performed. and the soft tissues infiltrated with 1% lidocaine local anesthetic. Utilizing ultrasound guidance, a 21 gauge Accu Stick needle was advanced from a posterolateral approach into an lower pole calyx, and a small amount of contrast was injected under fluoroscopy to confirm positioning. Over a mandril wire, exchange was made to a non-vascular access set, through which was advanced an 0.035 wire. Following serial dilation, an 8 F rench multipurpose nephrostomy catheter was placed with tip pigtailed within the renal pelvis. Position was confirmed with antegrade nephrostogram. The catheter was secured in place and connected to gravity drainage. A sterile dressing was applied. No immediate complication was identified. Air Kerma 3 mGy FLUOROSCOPY TIME: 1.5 minutes. CONTRAST USED: 10 mL Omnipaque 300. SEDATION: Dr. Keeley Durant was personally responsible for the administration of moderate sedation during the procedure performed, including the use of an independent trained observer who had no other duties during the procedure. The drugs utilized were IV fentanyl and versed (see nursing log for details). The total time of supervision by the attending physician was approximately 30 minutes. FINDINGS: Dilated right renal collecting system involving the calyces/renal pelvis/ureter to the level of the mid ureter. New 8 albanian nephrostomy tube via a posterior lower pole calyceal access, with loop coiled within the renal pelvis. IMPRESSION: Right hydronephrosis due to obstructive mid ureteral kidney stone, status post placement of 8 albanian right percutaneous nephrostomy catheter. PLAN: Routine catheter care.
--- NOTE | 2025-10-21 10:07 | DVH ---
XY PERCUTANEOUS NEPHROSTOMY, US US GUIDANCE FOR NEEDLE PLACEME, HISTORY: RT flank pain due to obstructive 9 mm mid ureteral kidney stone with hydronephrosis. PROCEDURE: Informed consent was obtained. The patient was placed on the fluoroscopic table in a prone position and IV sedation administered. The right flank was prepped with chlorhexidine which was allowed to dry and draped in the usual sterile fashion. Time out was performed. and the soft tissues infiltrated with 1% lidocaine local anesthetic. Utilizing ultrasound guidance, a 21 gauge Accu Stick needle was advanced from a posterolateral approach into an lower pole calyx, and a small amount of contrast was injected under fluoroscopy to confirm positioning. Over a mandril wire, exchange was made to a non-vascular access set, through which was advanced an 0.035 wire. Following serial dilation, an 8 F rench multipurpose nephrostomy catheter was placed with tip pigtailed within the renal pelvis. Position was confirmed with antegrade nephrostogram. The catheter was secured in place and connected to gravity drainage. A sterile dressing was applied. No immediate complication was identified. Air Kerma 3 mGy FLUOROSCOPY TIME: 1.5 minutes. CONTRAST USED: 10 mL Omnipaque 300. SEDATION: Dr. Keeley Durant was personally responsible for the administration of moderate sedation during the procedure performed, including the use of an independent trained observer who had no other duties during the procedure. The drugs utilized were IV fentanyl and versed (see nursing log for details). The total time of supervision by the attending physician was approximately 30 minutes. FINDINGS: Dilated right renal collecting system involving the calyces/renal pelvis/ureter to the level of the mid ureter. New 8 tongan nephrostomy tube via a posterior lower pole calyceal access, with loop coiled within the renal pelvis. IMPRESSION: Right hydronephrosis due to obstructive mid ureteral kidney stone, status post placement of 8 tongan right percutaneous nephrostomy catheter. PLAN: Routine catheter care.
--- NOTE | 2025-10-21 11:35 | DVHPN2 ---
Reviewed: Care Plan, H&P, Labs, Medications, Previous Orders, Radiology Changes from previous H/P or p: No Changes Objective Vitals Vital Signs Date Time Temp Pulse Resp B/P (MAP) Pulse Ox O2 Delivery O2 Flow Rate FiO2 10/21/25 10:56 89 20 147/98 10/21/25 09:45 97 10/21/25 08:00 Room Air* 0 21 10/21/25 05:00 98.9 98.9 Intake/Output Intake and Output 10/21/25 07:00 Intake Total 218 ml Output Total 1510 ml Balance -1292 ml Intake Oral 218 ml Output Urine Total 1510 ml Medications Current Medications Medications Dose Ordered Sig/Simón Route Start Time Stop Time Status Last Admin Dose Admin Sodium Chloride 1,000 ml @ 75 mls/hr [id number] IV 10/18/25 04:00 10/21/25 00:19 75 MLS/HR Acetaminophen 650 mg Q6HR PO 10/18/25 02:15 10/21/25 06:37 650 MG Pantoprazole Sodium 40 mg DAILY IV 10/18/25 10:00 10/21/25 10:56 40 MG Polyethylene Glycol 17 gm DAILY PO 10/19/25 10:00 10/21/25 10:57 17 GM Hydromorphone HCl 0.5 mg Q4HPRN PRN IV 10/19/25 17:15 10/21/25 10:56 0.5 MG Acetaminophen/ Hydrocodone Bitart 1 tab Q6HP PRN PO 10/19/25 17:15 Ondansetron HCl 4 mg Q6HPRN PRN IV 10/19/25 17:15 Laboratory Results Laboratory Tests 10/19/25 11:36 Urinalysis Test 10/17/25 13:47 10/17/25 23:47 Urine Creatinine 351.42 mg/dL (30.0-125.0) H Urine Protein/Creatinine Ratio 0.26 Urine Sodium 51 mmol/L (40-220) Urine Total Protein 91.6 mg/dL (1-14) H Urine Color Yellow (Yellow) Urine Clarity Clear (Clear) Urine pH 5.5 (5.0-9.0) Urine Specific [place] 1.036 (1.001-1.035) Urine Protein 1+ (Negative) H Urine Ketones 1+ (Negative) H Urine Blood Negative /uL (Negative) Urine Nitrite Negative (Negative) Urine Bilirubin Negative (Negative) Urine Urobilinogen Normal mg/dL (Negative) Urine Leukocyte Esterase Trace /uL (Negative) Urine RBC 6 /hpf (0 - 3) Urine Microscopic WBC 2 /HPF (0-3) Urine Squamous Epithelial Cells None seen /hpf (<5) Urine Bacteria None seen /hpf (None Seen) Urine Glucose Normal mg/dL (Normal) Labs and/or images reviewed: Labs reviewed by me, Image(s) reviewed by me Assessment/Plan Assessment/Plan Acute right flank pain 10 mm right mid ureteral calculus with severe hydronephrosis Flomax tramadol urology consult for , advised no immediate urological intervention required, status post right nephrostomy tube placement by radiologist on 10/21/2025 Renal ultrasound 10/18/2025 shows persisting moderate to severe right collecting system dilatation Obstructive uropathy JEFF on CKD Chronic current smoker: Counseling History of hep C on treatment in [facility] clinic Time spent 45 minutes Plan discussed with: Patient Date of Service: Oct 21, 2025 Billing Provider: FAUSTINO BENAVIDEZ MD Common Visit Codes: [id number] INP/OBS CARE(HIGH) FAUSTINO BENAVIDEZ MD Oct 21, 2025 11:35
[2025-10-22 01:00] VITALS: BP 134/93; PULSE 63; RESP 17; TEMP 97.7; O2SAT 97
[2025-10-22 05:00] VITALS: BP 142/91; PULSE 66; RESP 17; TEMP 96.9; O2SAT 96
[2025-10-22 06:35] LABS: Hemoglobin 13.3 g/dL (13.5-17.5)
[2025-10-22 06:37] LABS: Hematocrit 39.9 % (41.0-53.0); Mean Corpuscular Hemoglobin 31.1 pg (28.0-32.0); Mean Corpuscular Volume 93.3 fL (80.0-100.0); Nucleated Red Blood Cells % 0.1 %
[2025-10-22 07:03] LABS: Alanine Aminotransferase 13 U/L (7-40); Albumin 3.8 g/dL (3.2-4.8); Alkaline Phosphatase 82 U/L (46-116); Anion Gap 6 (5-15); BUN/Creatinine Ratio 10.2 (10.0-20.0); Blood Urea Nitrogen 17 mg/dL (9-23); Calcium 9.2 mg/dL (8.7-10.4); Carbon Dioxide 26 mmol/L (20-31); Chloride 107 mmol/L (98-107); Glucose 88 mg/dL (74-106); Potassium 4.4 mmol/L (3.5-5.1); Sodium 139 mmol/L (136-145); Total Protein 7.4 g/dL (5.7-8.2)
[2025-10-22 07:05] LABS: Bilirubin, Total 0.2 mg/dL (0.2-1.0)
[2025-10-22 08:00] VITALS: PULSE 64; RESP 18; O2SAT 97
[2025-10-22 09:00] VITALS: BP 142/94; PULSE 64; RESP 18; TEMP 98.8; O2SAT 97
[2025-10-22] MEDS ORDERED: TRAM-626 PO (11:08)
[2025-10-22] MEDS ORDERED: CIPR-173 PO (11:08)
--- NOTE | 2025-10-22 11:16 | DVHDS2 ---
Discharge Summary Date of Admission Oct 17, 2025 at 23:27 Date of Discharge: Oct 22, 2025 Admitting Diagnosis Right flank pain Wounds: Right nephrostomy tube placement Labs/Diagnostic Data: Laboratory Results Test 10/22/25 05:53 10/18/25 06:10 10/17/25 23:47 10/17/25 17:49 White Blood Count 6.1 10^3/uL (4.4-10.8) Red Blood Count 4.28 10^6/uL (4.5-5.90) Hemoglobin 13.3 g/dL (13.5-17.5) Hematocrit 39.9 % (41.0-53.0) Mean Corpuscular Volume 93.3 fL (80.0-100.0) Mean Corpuscular Hemoglobin 31.1 pg (28.0-32.0) Mean Corpuscular Hemoglobin Concent 33.3 g/dL (32.0-36.0) Red Cell Distribution Width 15.1 % (11.8-14.3) Platelet Count 463 10^3/uL (140-450) Mean Platelet Volume 6.6 fL (6.9-10.8) Neutrophils (%) (Auto) 45.8 % (37.0-80.0) Lymphocytes (%) (Auto) 36.9 % (10.0-50.0) Monocytes (%) (Auto) 14.5 % (0.0-12.0) Eosinophils (%) (Auto) 2.2 % (0.0-7.0) Basophils (%) (Auto) 0.6 % (0.0-2.0) Neutrophils # (Auto) 2.8 10 ^3/uL (1.6-8.6) Lymphocytes # (Auto) 2.2 10 ^3/uL (0.4-5.4) Monocytes # (Auto) 0.9 10 ^3/uL (0-1.3) Eosinophils # (Auto) 0.1 10 ^3/uL (0-0.8) Basophils # (Auto) 0 10 ^3/uL (0-0.2) Nucleated Red Blood Cells 0.1 % Sodium Level 139 mmol/L (136-145) Potassium Level 4.4 mmol/L (3.5-5.1) Chloride Level 107 mmol/L (98-107) Carbon Dioxide Level 26 mmol/L (20-31) Anion Gap 6 (5-15) Blood Urea Nitrogen 17 mg/dL (9-23) Creatinine 1.67 mg/dL (0.700-1.30) Glomerular Filtration Rate Calc 52 mL/min (>90) BUN/Creatinine Ratio 10.2 (10.0-20.0) Serum Glucose 88 mg/dL (74-106) Calcium Level 9.2 mg/dL (8.7-10.4) Total Bilirubin 0.2 mg/dL (0.2-1.0) Aspartate Amino Transferase (AST) 25 U/L (13-40) Alanine Aminotransferase (ALT) 13 U/L (7-40) Alkaline Phosphatase 82 U/L (46-116) Total Protein 7.4 g/dL (5.7-8.2) Albumin 3.8 g/dL (3.2-4.8) Absolute Neutrophils (auto) 5.3 x10E3/uL (1.4-7.0) Absolute Lymphocytes (auto) 2.2 x10E3/uL (0.7-3.1) Absolute Monocytes (auto) 1.1 x10E3/uL (0.1-0.9) Absolute Eosinophils (auto) 0.2 x10E3/uL (0.0-0.4) Absolute Basophils (auto) 0.1 x10E3/uL (0.0-0.2) Immature Granulocytes % 1 % (Not Estab.) Immature Granulocytes # 0.1 x10E3/uL (0.0-0.1) Immature Blood Cells (.) Hematology Comments (.) Prothrombin Time 10.6 sec (9.3-11.8) Prothrombin Time INR 1.00 (0.9-1.15) Activated Partial Thromboplast Time 32.7 SEC (24.5-34.5) Phosphorus Level 2.9 mg/dL (2.4-5.1) Magnesium Level 2.3 mg/dL (1.6-2.6) Vitamin D 25-Hydroxy 18.2 ng/mL (30.0-100) Parathyroid Hormone (Intact) 116.7 pg/mL (18.4-80.1) Plasma/Serum Blood Alcohol < 3.0 mg/dL (<10) Percent CD4 Cells 44.8 % (30.8-58.5) Absolute CD4 Count 986 /uL (359-1519) T-Lymphocyte CD4/CD8 Ratio 1.51 (0.92-3.72) Percent CD8 Cells 29.7 % (12.0-35.5) Absolute CD8 Count 653 /uL (109-897) Urine Color Yellow (Yellow) Urine Clarity Clear (Clear) Urine pH 5.5 (5.0-9.0) Urine Specific [place] 1.036 (1.001-1.035) Urine Protein 1+ (Negative) Urine Ketones 1+ (Negative) Urine Blood Negative /uL (Negative) Urine Nitrite Negative (Negative) Urine Bilirubin Negative (Negative) Urine Urobilinogen Normal mg/dL (Negative) Urine Leukocyte Esterase Trace /uL (Negative) Urine RBC 6 /hpf (0 - 3) Urine Microscopic WBC 2 /HPF (0-3) Urine Squamous Epithelial Cells None seen /hpf (<5) Urine Bacteria None seen /hpf (None Seen) Urine Glucose Normal mg/dL (Normal) Lactic Acid Level 1.0 mmol/L (0.4-2.0) Test 10/17/25 13:47 Urine Creatinine 351.42 mg/dL (30.0-125.0) Urine Protein/Creatinine Ratio 0.26 Urine Sodium 51 mmol/L (40-220) Urine Total Protein 91.6 mg/dL (1-14) Other Laboratory Tests 10/22/25 05:53 Brief Hx & Hospital Course: 45-year-old male with a history of kidney stones came in complaining of right flank pain found to have 10 mm right mid ureteral calculus with hydronephrosis treated with tramadol Flomax urology consult by Dr. Cano advised nephrostomy tube placement which was done by the radiologist Dr. Cano advised outpatient lithotripsy patient was advised on discharged home on Cipro and tramadol Consults/Reason for consult Urology Dr. Alexandra Radiologist Operations or Procedures Right nephrostomy tube placement CT abdomen pelvis without contrast Condition at Discharge: Fair Final Diagnosis/Problems List Acute right flank pain 10 mm right mid ureteral calculus with severe hydronephrosis Flomax tramadol urology consult for , advised no immediate urological intervention required, status post right nephrostomy tube placement by radiologist on 10/21/2025 Renal ultrasound 10/18/2025 shows persisting moderate to severe right collecting system dilatation Obstructive uropathy JEFF on CKD Chronic current smoker: Counseling History of hep C on treatment in [facility] Discharge Disposition: Home Discharge Instruct/Medications Diet: Regular Activity: Light activity Follow Up/Referral: Follow up with the Urology Dr. Alexandra in two weeks for treatment of kidney stone Medications: Cipro Tramadol Transmitted to pharmacy Scheduled Ciprofloxacin Hcl (Cipro), 1 TAB PO BID Scheduled PRN Tramadol HCl (Tramadol HCl), 50 MG PO QID PRN 39 (Time taken for discharge summary 39 minutes) Discharge Statement: "Patient was advised to return to the ER or call 911 if any headaches, dizziness, shortness of breath, chest pain, abdominal pain, bleeding, fevers, or worsening of medical condition. Patient was counseled about treatment plan, medications, possible side effects, patientverbalized understanding. All questions were answered to the best of my ability. This discharge took greater then 30 minutes in planning, reviewing documentation, counseling the patient, and discussing with other team members." ASSESSMENT ASSESSMENT Hospital Course Improved Assessment Acute right flank pain 10 mm right mid ureteral calculus with severe hydronephrosis Flomax tramadol urology consult for , advised no immediate urological intervention required, status post right nephrostomy tube placement by radiologist on 10/21/2025 Renal ultrasound 10/18/2025 shows persisting moderate to severe right collecting system dilatation Obstructive uropathy JEFF on CKD Chronic current smoker: Counseling [facility] of [facility] C [facility] Date of Service: Oct 22, 2025 Billing Provider: FAUSTINO BENAVIDEZ MD Common Visit Codes: 02929-QOH/[id number] DISCH DAY >30min FAUSTINO BENAVIDEZ MD Oct 22, 2025 11:16
[2025-10-22 13:00] VITALS: BP 148/108; PULSE 106; RESP 20; TEMP 97.9; O2SAT 97
[2025-10-22 13:30] VITALS: BP 148/108; PULSE 106; RESP 20; TEMP 37.1; O2SAT 97
== END 2025-10-22 15:00 | disposition home or self-care (01) | DRG 465 ==
LOC: ER 16:53 → EDBD 16:53 → OVERFLOW 23:27 → EAST 10-18 02:15
PROVIDERS: ADMIT Family Medicine; ATTEND Family Medicine
PROC: 0T933ZZ Drainage of Right Kidney Pelvis, Percutaneous Approach (ICD-10-PCS; principal; 2025-10-21)
DX: N13.2 Hydronephrosis with renal and ureteral calculous obstruction (principal); N17.0 Acute kidney failure with tubular necrosis; E44.1 Mild protein-calorie malnutrition; N18.9 Chronic kidney disease, unspecified; B19.20 Unspecified viral hepatitis C without hepatic coma; F17.200 Nicotine dependence, unspecified, uncomplicated; K59.01 Slow transit constipation; Z80.1 Family history of malignant neoplasm of trachea, bronchus and lung; Z87.442 Personal history of urinary calculi; Z71.6 Tobacco abuse counseling; Z68.20 Body mass index [BMI] 20.0-20.9, adult
CPT/HCPCS: 36415; 50432; 74176; 74425; 76775; 76942; 80053; 80320; 81001; 82306; 82570; 83605; 83735; 83970; 84100; 84156; 84300; 85025; 85610; 85730; 86360; 99152; G0378; J2250; J2470